=== PATIENT | female | born 1980 | race Caucasian/White ===

== ENCOUNTER 2020-01-06 08:13 | Day surgery (SDC) | payer OTHER, SELFPAY ==
[~2020-01-06] VITALS: Ht 162.6 cm; Wt 77.1 kg
[2020-01-06] MEDS ORDERED: HYDROmorphone 1 MG INJ. 1 MG/ML AMPUL IVP PRN ×2 (12:15)
[2020-01-06] MEDS ORDERED: MEPERIDINE HCL/PF 25 MG/ML DISP.SYRIN IVP PRN (12:15)
[2020-01-06] MEDS ORDERED: MIDAZOLAM HCL 5 MG/5 ML VIAL IVP PRN (12:15)
[2020-01-06] MEDS ORDERED: METOCLOPRAMIDE HCL 10 MG/2 ML VIAL IVP PRN (12:15)
[2020-01-06] MEDS ORDERED: LR 1,000 ML IV SCH (12:15)
[2020-01-06] MEDS ORDERED: ONDANSETRON HCL 4 MG/2 ML VIAL IVP PRN (12:15)
[2020-01-06] MEDS ORDERED: METOPROLOL TARTRATE 5 MG/5 ML VIAL ONE (13:10)
[2020-01-06] MEDS ORDERED: LIDOCAINE/EPI 1% 1:100000 20 ML VIAL INJ ONE (13:10)
[2020-01-06] MEDS ORDERED: ROCURONIUM BROMIDE 10 MG/ML (ZEMURON) ONE (13:10)
[2020-01-06] MEDS ORDERED: LIDOCAINE JELLY 5 ML TUBE ONE (13:10)
[2020-01-06] MEDS ORDERED: NS 500 ML IV.SOLN IV ONE (13:10)
[2020-01-06] MEDS ORDERED: LR 1,000 ML IV.SOLN IV ONE (13:10)
[2020-01-06] MEDS ORDERED: PROPOFOL 200MG/ 20ML VIAL (DIPRIVAN) IV ONE (13:10)
[2020-01-06] MEDS ORDERED: NS IRRIG SOLN 1000 ML IR ONE (13:10)
[2020-01-06] MEDS ORDERED: ePHEDrine sulfate 50 MG/ML VIAL ONE (13:10)
[2020-01-06] MEDS ORDERED: SUGAMMADEX SODIUM 200 MG/2 ML VIAL IV ONE (13:10)
[2020-01-06] MEDS ORDERED: MIDAZOLAM HCL 5 MG/ML VIAL (VERSED) IV ONE (13:10)
[2020-01-06] MEDS ORDERED: DEXAMETHASONE SOD PHOSPHATE 4 MG/ML VIAL ONE (13:10)
[2020-01-06] MEDS ORDERED: ONDANSETRON HCL 4 MG/2 ML VIAL ONE (13:10)
[2020-01-06] MEDS ORDERED: OXYMETAZOLINE HCL 0.05% NASAL SPRAY NS ONE (13:10)
[2020-01-06] MEDS ORDERED: DESFLURANE 15 MIN GAS INH ONE (13:10)
[2020-01-06] MEDS ORDERED: fentaNYL CITRATE 250 MCG/5 ML AMP ONE (13:10)
[2020-01-06] MEDS ORDERED: EPINEPHrine 1 MG/ML AMP ONE (13:10)
[2020-01-06] MEDS: HYDROmorphone 1 MG INJ. 1 MG/ML AMPUL ONE ×3 (13:24→13:35)
[2020-01-06 14:00] VITALS: BP_SYST 137
== END 2020-01-06 17:15 | disposition home or self-care (01) ==
LOC: SDS 08:13 → SMU 08:14 → SDS 17:15
PROVIDERS: ATTEND Otolaryngology
DX: J34.89 Other specified disorders of nose and nasal sinuses (principal); J33.9 Nasal polyp, unspecified; D38.5 Neoplasm of uncertain behavior of other respiratory organs; J30.1 Allergic rhinitis due to pollen; E66.3 Overweight; Z11.59 Encounter for screening for other viral diseases
CPT/HCPCS: 30140; 30520; 31237; 87070; 87075; 87101; 88304; 88305; 88311; J1170; U0003; 88313; C9399; J0171; J1100; J2250; J2405; J2704; J3010; J3490; J7040; J7120